=== PATIENT | male | born 1985 | race Caucasian/White ===

== ENCOUNTER 2017-06-30 11:04 | Emergency (ER) | payer OTHER ==
[2017-06-30 11:11] VITALS: BMI 23.5
--- NOTE | 2017-06-30 11:24 | ED PDOC ---
Lower Extremity Pain/Injury Time Seen by Provider: 06/30/17 11:23 Chief Complaint (Provider): right knee pain History Per: Patient Additional Complaint(s): 31-year-old male presents to emergency department with pain and swelling to right knee status post fall skiing yesterday. Patient is able to bear weight but has pain when doing so. He took ibuprofen last night which did help the pain. PMD: none Past Medical History Reviewed: Historical Data, Nursing Documentation, Vital Signs Vital Signs: Last Vital Signs Temp 97 F L 06/30/17 11:09 Pulse 115 H 06/30/17 11:09 Resp BP 125/84 06/30/17 11:09 Pulse Ox 100 06/30/17 11:09 - Medical History PMH: No Chronic Diseases - Surgical History Other surgeries: Hemorrhoidectomy - Family History Family History: States: No Known Family Hx - Living Arrangements Living Arrangements: With Family - Social History Current smoker - smoking cessation education provided: No Alcohol: None Drugs: Denies - Home Medications Home Medications: Ambulatory Orders Medication Instructions Recorded Ibuprofen [Motrin] 600 mg PO Q6 PRN #15 tab 06/30/17 traMADol [Ultram] 50 mg PO TID PRN #15 tab 06/30/17 - Allergies Allergies/Adverse Reactions: Allergies Allergy/AdvReac Type Severity Reaction Status Date / Time No Known Allergies Allergy Verified 06/30/17 11:36 Wells Criteria for PE - Wells Criteria for Pulmonary Embolism Clinical Signs and Symptoms of DVT: No P.E is #1 Diagnosis, or Equally Likely: No Heart Rate >100: No Immobilization at least 3 days;Surgery previous 4 weeks: No Previous, objectively diagnosed PE or DVT: No Hemoptysis: No Malignancy w/treatment within 6 months, or palliative: No Total Score: 0 Review of Systems ROS Statement: Except As Marked, All Systems Reviewed And Found Negative Musculoskeletal: Positive for: Other (right knee injury) Physical Exam - Reviewed Nursing Documentation Reviewed: Yes Vital Signs Reviewed: Yes - Physical Exam Appears: Positive for: Well, Non-toxic, No Acute Distress Skin: Negative for: Rash Eye Exam: Positive for: Normal appearance Neck: Positive for: Normal Extremity: Positive for: Other (Moderate swelling to the suprapatellar region of the right knee with full range of motion, normal distal sensation right lower extremity) Neurologic/Psych: Positive for: Alert, Oriented - ECG O2 Sat by Pulse Oximetry: 100 Pulse Ox Interpretation: Normal - Other Rad Right knee x-ray X-Ray: Interpreted by Me, Viewed By Me X-Ray Interpretation: ? tibial plateau fracture, CT ordered CT right knee X-Ray: Read By Radiologist X-Ray Interpretation: see below Medical Decision Making Medical Decision Makin-year-old male with right knee injury Plan: X-ray right knee Pain meds declined Patient made aware of x-ray results, CT ordered for further evaluation. CT: PROCEDURE: HISTORY: right knee injury COMPARISON: FINDINGS: Osteochondral fracture of the anterior tibial spine likely representing avulsion fracture of the insertion of the anterior cruciate ligament. No other fracture deformity is observed. IMPRESSION: As above. Patient given copy of CT report. He is aware of all findings. Crutches and knee immobilizer provided. Prescription given for Motrin and tramadol. Patient was referred to orthopedist vibration engineer for follow up. Procedures - Splinting Location: right knee Pre-Made Type: knee immobilizer Pre-Proc Neuro Vasc Exam: normal Post-Proc Neuro Vasc Exam: normal Disposition - Clinical Impression Clinical Impression: Knee fracture, Injury of anterior cruciate ligament - Patient ED Disposition Is Patient to be Admitted: No Counseled Patient/Family Regarding: Studies Performed, Diagnosis, Need For Followup, Rx Given - Disposition Referrals: Huan Higuera MD [Medical Doctor] - Disposition: Routine/Home Disposition Time: 14:12 Condition: STABLE Additional Instructions: Ice, rest and elevate affected area. Use crutches only, do not bear weight. To prescription meds as directed. Follow-up with orthopedist in one to 2 days. Prescriptions: Ibuprofen [Motrin] 600 mg PO Q6 PRN #15 tab PRN Reason: Pain, Moderate (4-7) traMADol [Ultram] 50 mg PO TID PRN #15 tab PRN Reason: Pain, Moderate (4-7) Instructions: Ligament Injuries in the Knee (DC), Knee Sprain (DC), Avulsion Fracture Forms: [facility] ED School/Work Excuse
[2017-06-30 11:39] VITALS: RESP 19
--- NOTE | 2017-06-30 13:50 | RAD ---
PROCEDURE: Right Knee Radiographs. HISTORY: trauma COMPARISON: None. FINDINGS: BONES: Roughly 1.5 centimeter loose body overlying the anterior intercondylar notch on the lateral view. JOINTS: Normal. No osteoarthritis. JOINT EFFUSION: None. OTHER FINDINGS: None. IMPRESSION: Roughly 1.5 centimeter loose body overlying the anterior intercondylar notch on the lateral view.
--- NOTE | 2017-06-30 14:00 | CT ---
PROCEDURE: HISTORY: right knee injury COMPARISON: TECHNIQUE: FINDINGS: Osteochondral fracture of the anterior tibial spine likely representing avulsion fracture of the insertion of the anterior cruciate ligament. No other fracture deformity is observed. IMPRESSION: As above.
[2017-06-30 14:52] VITALS: BP 129/76; PULSE 78; TEMP 97.5; O2SAT 98
== END 2017-06-30 14:53 | disposition home or self-care (01) ==
LOC: H.ER 11:04
DX: S82.001A Unspecified fracture of right patella, initial encounter for closed fracture (principal); S89.90XA Unspecified injury of unspecified lower leg, initial encounter; V00.321A Fall from snow-skis, initial encounter; Y93.23 Activity, snow (alpine) (downhill) skiing, snowboarding, sledding, tobogganing and snow tubing